=== PATIENT | male | born 1935 | race Caucasian/White ===

== ENCOUNTER 2020-12-10 13:05 | Emergency (ER) | payer OTHER ==
[~2020-12-10] VITALS: Ht 170.2 cm; Wt 75.8 kg
[~2020-12-10 13:05] MED LIST: HYDACE5; PROM25 PO; Synthroid88 MCG
[2020-12-10] MEDS ORDERED: POLYTRIM EYE DR10 M1 BOTHEYES (20:59)
== END 2020-12-10 14:50 | disposition home or self-care (01) ==
LOC: ER 13:05
DX: T15.91XA Foreign body on external eye, part unspecified, right eye, initial encounter (principal); W45.8XXA Other foreign body or object entering through skin, initial encounter
CPT/HCPCS: 65205; 99282; A9270

== ENCOUNTER 2020-12-10 19:49 | Emergency (ER) | payer OTHER ==
[~2020-12-10] VITALS: Ht 170.2 cm; Wt 75.8 kg
[2020-12-10] MEDS ORDERED: POLYTRIM EYE DR10 M1 BOTHEYES (20:59)
== END 2020-12-10 21:00 | disposition home or self-care (01) ==
LOC: ER 19:49
DX: H10.023 Other mucopurulent conjunctivitis, bilateral (principal); Z87.891 Personal history of nicotine dependence
CPT/HCPCS: 99282; A9270